=== PATIENT | male | born 1960 | race Caucasian/White ===

== ENCOUNTER → 2024-09-02 | Outpatient (CLI) | payer OTHER ==
[~2024-09-02] MED LIST: IBU800 M1 PO; NO HOME MEDICATIONS; NORCO 325 MG-7.1 TAB PO
== END ==
LOC: COL.RAD 06:50
DX: Z01.89 Encounter for other specified special examinations (principal); M50.31 Other cervical disc degeneration, high cervical region; M89.38 Hypertrophy of bone, other site; M48.02 Spinal stenosis, cervical region; M50.321 Other cervical disc degeneration at C4-C5 level; M50.322 Other cervical disc degeneration at C5-C6 level; M50.323 Other cervical disc degeneration at C6-C7 level; M47.813 Spondylosis without myelopathy or radiculopathy, cervicothoracic region; M51.360 Other intervertebral disc degeneration, lumbar region with discogenic back pain only